=== PATIENT | female | born 1955 | race Caucasian/White ===

== ENCOUNTER 2016-09-10 14:45 | Outpatient (RCR) | payer OTHER, BC | END 2016-10-05 14:03 | disposition home or self-care (01) | PROVIDERS: ATTEND Emergency Medicine | DX: S63.592D Other specified sprain of left wrist, subsequent encounter (principal) ==

== ENCOUNTER 2016-10-18 16:06 | Outpatient (RCR) | payer OTHER, BC | END 2016-11-09 | disposition home or self-care (01) | DX: R10.2 Pelvic and perineal pain (principal); N39.41 Urge incontinence ==

== ENCOUNTER 2017-04-07 11:12 | Outpatient (RCR) | payer OTHER, BC | END 2017-04-09 | disposition home or self-care (01) | PROVIDERS: ATTEND Nurse Practitioner Family | DX: Z47.89 Encounter for other orthopedic aftercare (principal); M25.521 Pain in right elbow ==

== ENCOUNTER 2017-06-07 10:34 | Outpatient (RCR) | payer OTHER, BC | END 2017-06-16 15:47 | disposition home or self-care (01) | PROVIDERS: ATTEND Nurse Practitioner Family | DX: Z47.89 Encounter for other orthopedic aftercare (principal); M25.521 Pain in right elbow ==

== ENCOUNTER → 2017-07-13 | Outpatient (CLI) | payer OTHER, BC ==
--- NOTE | 2017-07-13 13:43 | Diagnostic Imaging Report ---
INDICATION: Subareolar pain. TECHNIQUE: A targeted ultrasound of the left breast was performed in the subareolar region. FINDINGS: There is normal heterogeneity of the underlying fibroglandular tissue. There is no discrete solid or cystic mass in the left breast. IMPRESSION: Negative left breast sonogram. Dictated by: Dictated on workstation # [id number]
--- NOTE | 2017-07-13 13:58 | Diagnostic Imaging Report ---
INDICATION: Left subareolar pain. COMPARISON: 07/13/2017. TECHNIQUE: Digital diagnostic mammography was performed bilaterally with a Computer Aided Detection (CAD) system. FINDINGS: There is moderately dense fibroglandular tissue bilaterally. There are a few scattered benign type calcifications. There are surgical clips in the left axilla. There is no dominant mass, spiculated lesion, or suspicious calcification identified. The skin, nipples, and axillae are unremarkable. A subareolar ultrasound was also performed on the left which was negative. IMPRESSION: Benign findings. ACR BI-RADS Category 1: Negative. Result letter will be mailed to the patient. Note: At least 10% of breast cancer is not imaged by mammography. Dictated by: Dictated on workstation # [id number]
== END ==
LOC: RAD 12:44
PROVIDERS: ATTEND Obstetrics & Gynecology
DX: N64.4 Mastodynia (principal); Z98.82 Breast implant status
CPT/HCPCS: 76642; 77066

== ENCOUNTER 2017-09-01 11:30 | Outpatient (RCR) | payer OTHER, BC | END 2017-10-25 10:20 | disposition home or self-care (01) | DX: M25.552 Pain in left hip (principal) ==

== ENCOUNTER → 2018-10-20 | Outpatient (CLI) | payer OTHER ==
--- NOTE | 2018-10-20 10:35 | Diagnostic Imaging Report ---
INDICATION: Cough. PA and lateral views were obtained. FINDINGS: The heart size, mediastinal configuration, and pulmonary vascularity are within normal limits. There is no pleural effusion, pneumothorax, or pneumonia. The osseous structures are unremarkable. IMPRESSION: No acute cardiopulmonary abnormality. Dictated by: Dictated on workstation # [id number]
== END ==
LOC: RAD 09:45
PROVIDERS: ATTEND Nurse Practitioner Family
DX: R05 Cough (principal); R06.00 Dyspnea, unspecified
CPT/HCPCS: 71046

== ENCOUNTER → 2020-04-18 | Outpatient (CLI) | payer OTHER ==
--- NOTE | 2020-04-18 15:06 | Diagnostic Imaging Report ---
INDICATION: Routine screening. COMPARISON is made with prior mammograms from 07/13/2017 and 09/18/2015. 2-D and 3-D bilateral screening mammography was performed with CAD. Both breasts remain heterogeneously dense, limiting the sensitivity of mammography. The parenchymal pattern is stable. No dominant mass or malignant appearing microcalcifications are seen. Surgical clips in the superior left breast are again noted. Axillae are unremarkable. IMPRESSION: BI-RADS Category 2. No mammographic features suspicious for malignancy are identified. ACR BI-RADS Category 2: Benign findings. Result letter will be mailed to the patient. Note: At least 10% of breast cancer is not imaged by mammography. Dictated by: Dictated on workstation # [id number]
== END ==
LOC: RAD 10:30
PROVIDERS: ATTEND Obstetrics & Gynecology
DX: Z12.31 Encounter for screening mammogram for malignant neoplasm of breast (principal)
CPT/HCPCS: 77063; 77067

== ENCOUNTER → 2023-04-14 | Outpatient (CLI) | payer MEDICARE, OTHER ==
--- NOTE | 2023-04-14 17:23 | Diagnostic Imaging Report ---
EXAMINATION: Paranasal sinuses, three views. HISTORY: Congestion. COMPARISON: None available. FINDINGS: Maxillary sinuses appear normal. Frontal sinuses are normal. Mastoid air cells are aerated. No fracture is seen. IMPRESSION: 1. Normal paranasal sinuses. Dictated by: Dictated on workstation # [id number]
== END ==
LOC: RAD 13:21
PROVIDERS: ATTEND Family Medicine
DX: J30.2 Other seasonal allergic rhinitis (principal)
CPT/HCPCS: 70220

== ENCOUNTER 2023-04-27 09:37 | Outpatient (CLI) | payer MEDICARE, OTHER ==
[~2023-04-27] VITALS: Ht 167.6 cm; Wt 68.0 kg
[2023-04-27] MEDS ORDERED: RT-ALBUINH INH (16:15)
[2023-04-27] MEDS ORDERED: FLUT1AER IH (16:15)
[2023-04-27] MEDS ORDERED: SUMA1TAB12 PO (16:15)
[2023-04-27] MEDS ORDERED: ESTR1GEL TD (16:15)
[2023-04-27] MEDS ORDERED: BUSP5TAB59 PO (16:15)
[2023-04-27] MEDS ORDERED: BUPR150T9 PO (16:15)
[2023-04-27] MEDS ORDERED: NRT10C PO (16:15)
[2023-04-27] MEDS ORDERED: PSEU60TA88 PO (16:15)
== END 2023-04-27 16:16 | disposition home or self-care (01) ==
LOC: PREOP 09:37
PROVIDERS: ATTEND Surgery
DX: Z01.818 Encounter for other preprocedural examination (principal)

== ENCOUNTER 2023-05-04 10:24 | Day surgery (SDC) | payer MEDICARE, OTHER ==
[~2023-05-04] VITALS: Ht 167.6 cm; Wt 68.0 kg
[~2023-05-04 10:24] MED LIST: BUPR150T9 PO; BUSP5TAB59 PO; ESTR1GEL TD; FLUT1AER IH; NRT10C PO; PSEU60TA88 PO; RT-ALBUINH INH; SUMA1TAB12 PO
[2023-05-04] MEDS ORDERED: LACTATED RINGERS 1,000 ML 1,000 ML IV STA (10:36)
[2023-05-04 10:45] VITALS: BP 112/74
[2023-05-04] MEDS ORDERED: LIDOCAINE JELLY 2% 6 ML SYRINGE MM PRN (10:45)
[2023-05-04] MEDS ORDERED: LIDOCAINE JELLY 2% 6 ML SYRINGE ONE (11:26)
--- NOTE | 2023-05-04 11:26 | Progress Note-Pre Operative ---
Pre-Operative Progress Note Date of Available H&P: May 04, 2023 Date H&P Reviewed: May 04, 2023 Time H&P Reviewed: 10:30 History & Physical: No changes noted Pre-Operative Diagnosis: screening o DEMETRIUS SARKAR MD May 04, 2023 11:26
--- NOTE | 2023-05-04 11:27 | Discharge Inst-Surgical ---
D/C Lap Instructions-MELLO Follow Up Activity as tolerated High Fiber Diet 25g or more per day Avoid Alcohol, Caffeine, Spicy [place] and Acid foods. Drink 64 fluid oz or more of fluids per day. Symptoms to Report: Fever over 101 degree F, Nausea/Vomiting If any problems/questions: Contact your physician or go to Emergency Room DEMETRIUS SARKAR MD May 04, 2023 11:27
[2023-05-04] MEDS ORDERED: ONDANSETRON INJECTION 4 MG/2 ML (SDV) IVP PRN (11:30)
[2023-05-04] MEDS ORDERED: ONDANSETRON 4 MG ORAL DISSOLVE TABLET PO PRN (11:30)
[2023-05-04 12:00] VITALS: BP 89/49
[2023-05-04 12:05] VITALS: BP 89/49
--- NOTE | 2023-05-04 12:08 | Progress Note-Post Operative ---
Post-Operative Progess Note Surgeon (s)/Street Engineer (s) Surgeon DEMETRIUS SARKAR MD Street Engineer: none Pre-Operative Diagnosis screening colo Post-Operative Diagnosis mild chronic stage 2 ext and int hemorrhoids, mild sigmoid diverticulosis. Procedure & Operative Findings Date of Procedure 05/04/23 Procedure Performed/Findings colonoscopy Anesthesia Type mac Estimated Blood Loss Estimated blood loss (mL): none Specimens/Packing Specimens Removed none DEMETRIUS SARKAR MD May 04, 2023 12:08
[2023-05-04 12:30] VITALS: BP 89/49
--- NOTE | 2023-05-04 15:34 | Anesthesia-General Post-Op ---
MAC Patient Condition Mental Status/LOC: Same as Preop Cardiovascular: Satisfactory Nausea/Vomiting: Absent Respiratory: Satisfactory Pain: Controlled Complications: Absent Post Op Complications Complications None Follow Up Care/Instructions Patient Instructions None needed. Anesthesiology Discharge Order Discharge Order Patient is doing well, no complaints, stable vital signs, no apparent adverse anesthesia problems. No complications reported per nursing. REYMUNDO DUNN CRNA May 04, 2023 15:34
--- NOTE | 2023-05-04 18:13 | OPERATIVE REPORT ---
DATE OF SERVICE: 05/04/2023 ATTENDING PRIMARY CARE PHYSICIAN: Haydee Yi DO PREOPERATIVE DIAGNOSIS: Screening colonoscopy. POSTOPERATIVE DIAGNOSES: Mild chronic stage II, external and internal hemorrhoids, mild sigmoid diverticulosis. PROCEDURE: Colonoscopy. SURGEON: Demetrius Sarkar MD ANESTHESIA: Monitored anesthesia care. ESTIMATED BLOOD LOSS: Minimal. FINDINGS: Mild chronic stage II, external and internal hemorrhoids, mild sigmoid diverticulosis. DISPOSITION: The patient tolerated the procedure well. INDICATIONS: The patient is a 68-year-old female in need of a screening colonoscopy. Her last one was approximately 12 years ago and believes this to be normal. She states that she is otherwise doing well, does not report any major issues with diarrhea, nor constipation as well as no red blood per rectum, nor any dark tarry stools. She also does not report any family history of colon cancer. DESCRIPTION OF PROCEDURE: The patient was brought to the endoscopy suite and laid in the left lateral decubitus position. After adequate IV pain and sedative medications and monitored anesthesia care, a digital rectal examination was performed. Mild chronic stage II, external and internal hemorrhoids were identified, not actively edematous nor inflamed and no bleeding. Normal sphincter tone itself and there were no palpable masses. The endoscope was then intubated into the anus, rectum gently insufflated. The endoscope was then advanced through the valves of [place] of the rectum with no polyps or any neoplasms identified. We then proceeded through the sigmoid colon where a mild sigmoid diverticulosis was identified. The endoscope was then advanced through the descending, transverse and ascending colon to the cecum, which were normal. No polyps or any neoplasms identified throughout the colon or rectum. The endoscope was then slowly withdrawn while taking a second look and suctioning of residual air with no additional findings. The patient tolerated the procedure well. We will recommend continued medical management with a high-fiber diet with a fiber supplement, which are equal or exceed 25 grams daily as well as significant amounts of water to promote soft consistency stools on a daily basis. She is asymptomatic, she does not need another colonoscopy for another 10 years. Job ID: [id number] DocumentID: [id number] Dictated Date: 05/04/2023 12:02:05 Office Manager Receptionist Date: 05/04/2023 18:12:00 Dictated By: DEMETRIUS SARKAR MD
== END 2023-05-04 12:45 | disposition home or self-care (01) ==
LOC: ENDO 10:24
PROVIDERS: ATTEND Surgery
DX: Z12.11 Encounter for screening for malignant neoplasm of colon (principal); K57.30 Diverticulosis of large intestine without perforation or abscess without bleeding; K64.1 Second degree hemorrhoids; K64.4 Residual hemorrhoidal skin tags